=== PATIENT | female | born 1970 | race Caucasian/White ===

== ENCOUNTER 2022-10-13 12:11 | Emergency (ER) | payer OTHER, SELFPAY ==
[2022-10-13 12:40] VITALS: BP 112/77; PULSE 70; RESP 18; TEMP 37.4; O2SAT 98; BMI 25.8
--- NOTE | 2022-10-13 12:45 | XR_ITS ---
The [address] [address] Patient Name: MAGALYS BALES MRN: [id number] date: 1970 Sex: F Assigned Patient Location: ED.MAIN Current Patient Location: ER Accession/Order Number: [id number] Exam Date: 10/13/2022 13:10 Report Date: 10/13/2022 13:56 At the request of: ZANDER DOMÍNGUEZ Procedure: XR ankle RT min 3V PROCEDURE: XR ankle RT min 3V, XR foot RT min 3V HISTORY: fall ; acute right foot and ankle pain after falling COMPARISON: None. FINDINGS: BONES:Suspect cortical avulsion from the anterior lateral margin of the calcaneus. Thin ossifications dorsal to the distal dorsal talus and adjacent dorsal surface of the navicular bone suspicious for cortical avulsion. SOFT TISSUES:Soft tissue swelling of the anterior lateral foot. EFFUSION:None visible. OTHER: Negative. IMPRESSION: 1. Suspect acute avulsion fracture from the anterior lateral calcaneus and dorsal surface of the talus and navicular bone. Electronically authenticated by: IBRAHIMA CLAUDIO Date: 10/13/2022 13:56
--- NOTE | 2022-10-13 12:45 | XR_ITS ---
The [address] [address] Patient Name: MAGALYS BALES MRN: [id number] date: 1970 Sex: F Assigned Patient Location: ED.MAIN Current Patient Location: ER Accession/Order Number: [id number] Exam Date: 10/13/2022 13:10 Report Date: 10/13/2022 13:56 At the request of: ZANDER DOMÍNGUEZ Procedure: XR foot RT min 3V PROCEDURE: XR ankle RT min 3V, XR foot RT min 3V HISTORY: fall ; acute right foot and ankle pain after falling COMPARISON: None. FINDINGS: BONES:Suspect cortical avulsion from the anterior lateral margin of the calcaneus. Thin ossifications dorsal to the distal dorsal talus and adjacent dorsal surface of the navicular bone suspicious for cortical avulsion. SOFT TISSUES:Soft tissue swelling of the anterior lateral foot. EFFUSION:None visible. OTHER: Negative. IMPRESSION: 1. Suspect acute avulsion fracture from the anterior lateral calcaneus and dorsal surface of the talus and navicular bone. Electronically authenticated by: IBRAHIMA CLAUDIO Date: 10/13/2022 13:56
--- NOTE | 2022-10-13 14:29 | ED.LOWEXI1 ---
HPI - Extremity Injury (Lower) General Chief Complaint: Extremity Injury, Lower Stated Complaint: LOWER RIGHT FOOT INJURY/ FALL Time Seen by Provider: 10/13/22 14:29 Source: patient and family Mode of arrival: Wheelchair Limitations: no limitations History of Present Illness HPI Narrative: Patient presents to the emergency department complaining of right ankle pain. Patient states she rolled it And heard a pop. She developed swelling and bruising. She is unable to bear weight. She has not taking anything for pain at home. She denies any other injury. She denies any paresthesias. She denies any weakness.States mechanical fall. Patient Not have any other complaint. She denies pain at the base of the 5th. Related Data Previous Rx's Medication Instructions Recorded ibuprofen 800 mg tablet 800 mg PO TID PRN pain #20 tabs 10/13/22 Allergies Allergy/AdvReac Type Severity Reaction Status Date / Time duloxetine [From Cymbalta] Allergy Intermediate Verified 10/13/22 12:44 fluoxetine [From Prozac] Allergy Intermediate Verified 10/13/22 12:44 midazolam [From Versed] Allergy Intermediate Verified 10/13/22 12:44 penicillin Allergy Intermediate Uncoded 10/13/22 12:44 Review of Systems ROS Status of ROS 10 or more systems reviewed and unremarkable except as noted in history and below Exam Narrative Exam Narrative: Nurses notes and vital signs reviewed and patient is not hypoxic. General: Nontoxic, Well-appearing and in no apparent distress. Skin: Warm, dry, no pallor noted. No Rash Head: Normocephalic, atraumatic. Neck: Supple, non-tender. Eye: Pupils are equal, round and EOMI. No scleral icterus. Ears, Nose, Mouth, and Throat: TM clear, no posterior oropharynx erythema or nasal mucosal hypertrophy, uvula is mid-line Oral mucosa is moist Cardiovascular: Regular Rate and Rhythm without murmur, gallop or rub. Respiratory: No accessory muscle use or respiratory distress. Lungs are clear to auscultation, no wheezing, rales or rhonchi Chest Wall: no tenderness Back: No midline thoracic or lumbar vertebral tenderness. No CVA tenderness Musculoskeletal: Ecchymosis and edema noted to the lateral malleolus and midfoot. Tenderness to palpation. No pain at the base of the 5th. DP +2, tuberculosis +2, capillary refill is brisk. Range of motion is limited by pain.no calf or popliteal tenderness, no lower extremity edema/swelling GI: Abdomen is soft, non-distended. Normal bowel sounds. No masses appreciated. No tenderness to palpation. No rebound, guarding, or rigidity noted. Neurological: A&O x4. No cranial nerve dysfunction observed. No truncal ataxia. Moves all extremities. Sensation intact. Psychiatric: Cooperative and interactive. Constitutional Vital Signs - 24 hr 10/13/22 12:40 Temperature 99.3 F Pulse Rate [Monitor] 70 Respiratory Rate 18 Blood Pressure [Right Arm] 112/77 Pulse Oximetry 98 Oxygen Delivery Method Room Air Course Vital Signs Vital signs: Vital Signs Temperature 99.3 F 10/13/22 12:40 Pulse Rate 70 10/13/22 12:40 Respiratory Rate 18 10/13/22 12:40 Blood Pressure 112/77 10/13/22 12:40 Pulse Oximetry 98 10/13/22 12:40 Oxygen Delivery Method Room Air 10/13/22 12:40 Temperature 99.3 F 10/13/22 12:40 Pulse Rate 70 10/13/22 12:40 Respiratory Rate 18 10/13/22 12:40 Blood Pressure 112/77 10/13/22 12:40 Pulse Oximetry 98 10/13/22 12:40 Oxygen Delivery Method Room Air 10/13/22 12:40 MDM - Extremity Injury (Lower) MDM Narrative Medical decision making narrative: A result discussed with patient. Patient is placed in a lower leg splint. Splint Application: The patient was placed in a short leg splint with orthoglass splint material, 4 inch. The patient had 2 rolls of the web roll applied to the affected site. Patient then had the splint material placed with felt side against web roll and skin. The patient had the splint secured in place with severo bandage. The patient was neurovascularly intact post application of the splint. Placed on crutches. Patient given prescription for analgesics, advised rice therapy, follow-up with Dr. paredes. Discharge Plan Discharge Chief Complaint: Extremity Injury, Lower Clinical Impression: Avulsion fracture of talus, Calcaneus fracture, Closed navicular fracture of right ankle Patient Disposition: Home, Self-Care Time of Disposition Decision: 14:38 Condition: Good Mode of Transportation: Private Vehicle Prescriptions / Home Meds: New ibuprofen 800 mg tablet 800 mg PO TID PRN (Reason: pain) Qty: 20 0RF Instructions: Ankle Fracture (ED) Stand Alone Forms: Portal Instructions Referrals: Julio Paredes MD [Physician] - 1 week KENTON WISEMAN [Primary Care Provider] - 1 week Discharge Date/Time: 10/13/22 15:21
[2022-10-13] MEDS: IBUPROFEN 400 MG TABLET 800 MG PO (14:59)
== END 2022-10-13 15:21 | disposition home or self-care (01) ==
PROVIDERS: Emergency Provider Emergency Medicine; PCP Family Medicine
DX: S92.101A Unspecified fracture of right talus, initial encounter for closed fracture (principal); S92.001A Unspecified fracture of right calcaneus, initial encounter for closed fracture; S92.251A Displaced fracture of navicular [scaphoid] of right foot, initial encounter for closed fracture; X50.9XXA Other and unspecified overexertion or strenuous movements or postures, initial encounter
CPT/HCPCS: 29515; 73610; 73630; 99283

== ENCOUNTER 2025-01-08 11:47 | Outpatient (OUT) | payer OTHER, SELFPAY ==
--- OUTSIDE RECORDS SUMMARY | 2014-05-27 13:45 | XMS_ITS | Continuity of Care Document ---
Author Organization [facility] Address [address] [place] [address] Phone Care Team Providers Care Catering Driver Name Role Phone Henrry Sutton Unavailable Unavailable Procedures Procedure Date IMMUNIZATION ADMIN TDAP VACCINE >7 IM IMMUNIZATION ADMIN TDAP VACCINE >7 IM OFFICE/OUTPATIENT VISIT, EST HEP B VACCINE, ADULT, IM OFFICE/OUTPATIENT VISIT, EST HEP B VACCINE, ADULT, IM Advance Directives Directive Yes / No Effective Date File Name No Information Encounters Encounter Description Practice Location Reason(s) For Visit Diagnoses Date Provider Providers Copied on Encounter [facility], [address] [place] [address], [place], [id number], [place] tel:[phone] [facility] No Information Cornell Mcguire. [address], [place], [id number], [place]. tel:[phone] OFFICE/OUTPATI ENT VISIT, [facility], [address], [place], [id number], [place] tel:[phone] [facility] No Information Cornell Mcguire. [address], [place], [id number], [place]. tel:[phone] OFFICE/OUTPATI ENT VISIT, [facility], [address], [place], [id number], [place] tel:[phone] [facility] No Information Cornell GANN Henrry. [address] [place] [address], [place], [place], [id number], [place]. tel:[phone] Family History Family Member Type Diagnosis Age At Onset No Information Immunizations Vaccine Date Status Comments Flu (split) (3 yrs or older) refused Source: New Immunization Record Tdap (>7 yrs) administered Note: VIS give n ; Source: New Immunization Record Payers Payer name Insurance type Covered green party ID Authoriza tion(s) [place] [employer] [id number] [place] [employer] [id number] [place] [employer] [id number] Social History Type Description Quantity Date Captured Comments Sex Female Smoking Status No Information Sexual Orientation Straight or heterosexual Chief Complaint And Reason For Visit No Information Reason For Referral Reason For Referral No Information History Of Present Illness Encounter Date Complaint History Of Prese nt Illness No Information Functional Status Date Functional Assessmen t No Information Instructions Date Instruction Additional Infor mation No Information Assessments Type Assessment Date No Information Patient Care Teams Name Effective Dates (start - stop) Status Members No Information
--- OUTSIDE RECORDS SUMMARY | 2023-11-01 05:45 | XMS_ITS ---
Author Organization [facility] Address [address] [place] [address] Care Team Providers Care Communications Associate Name Role Phone Colleen Justice Primary Care Provider [facility] JUSTICE Unavailable [phone] Allergies Allergen (clinical drug ingredient) Drug/Non Drug Allergy documented on EMR Reaction Allergy Type Onset Date Status duloxetine Cymbalta tachycardia Drug Allergy Acti ve sumatriptan Imitrex sleepy Drug Allergy Activ e fluoxetine PROzac depression Drug Allergy Activ e Shellfish (FN) Shellfish-derived Products lips numb and tingling Drug Allergy Active Penicillin rash Drug Allergy Active REASON FOR VISIT rash right wrist. Spreading all over body. + itch. Has had for about 1 1/2 weeks Medications Medication SIG (Take, Route, Fr equency, Duration) Notes Start Date End Date Status Meloxicam 7.5 MG 1 tablet Orally Once a day prn for 30 days PRN Not-Taking Ajovy 225 MG/1.5ML 1.5 mL Subcutaneous Active predniSONE 20 MG 2 tablet Orally Once a day for 5 days 11/01/2023 Active Ubrelvy 100 MG 1 tablet may take se cond dose at least 2 hours after first dose as needed Orally Once a day for 30 days 05/10/2023 Active Social History Tobacco Use: Social History Observation Description Date Details (start date - stop date) Former Smoker 05/08/1981 - 05/08/2006 Tobacco Use/Smoking Question Answer Notes Patient is a former smoker When did you start smoking? 05/08/1981 When did you stop smoking? 05/08/2006 AUDIT-C (Standard) Question Answer Notes Did you have a drink contain ing alcohol in the past year? Yes How often did you have six o r more drinks on one occasion in the past year? Never (0 point) How many drinks did you have on a typical day when you were drinking in the past year? 1 or 2 drinks (0 point) How often did you have a dri nk containing alcohol in the past year? 2 to 3 times a week (3 points) Points 3 Interpretation Positive Vital Signs Blood pressure systolic 124 mm Hg 11/01/19 24 Blood pressure diastolic 70 mm Hg 024 Height 65 in 11/01/2023 Weight 174.6 lbs 11/01/2023 BMI 29.05 kg/m2 11/01/2023 Encounters Encounter Location Date Provider Diagnosis [address] [address] 11/01/2023 [facility]LE[facility] JUSTICE Poison amie dermatiti s L23.7 Assessments Encounter Date Diagnosis (ICD Code) Assessment Notes Treatment Notes Treatment Clinical Notes Section Notes 11/01/2023 Poison amie dermatitis (ICD-10 - L23.7) fu if needed benadryl prn Plan Of Treatment Medication Medication Name Sig Start Date Stop Date Notes predniSONE 20 MG 2 tablet Orally Once a day for 5 days Treatment Notes Assessment Notes Poison amie dermatitis fu if needed benadryl prn Next Appt Details Follow Up: prn, Reason: Progress Notes * Jeanne BALES JDOB: [birth year] (53 yo F)Acc No.[id number]:11/01/2023 Progress Note Patient: Jeanne HARRIS Provider: Elen Justice CNP :1970 A ge:53 Y S ex:Female Date:11/01/2023 Address:[address] [place], [place] [id number] Check In:09:42 AM ESTCheck O ut:10:01 AM EST Subjective: * Chief Complaints: * r steffany right wrist. Spreading all over body. + itch. Has had for about 1 1/2 weeks * HPI: G eneral: poison amie spreading cleaning out gutters topicals not helping. * ROS: G eneral/Constitutional: Fever d enies. H eadache d enies. W eight loss?denies. O phthalmologic: Discharge d enies. E ye Pain d enies. I tching and redness d enies. E NT: Nasal discharge d enies. N keshav congestion d enies.?Sore throat d enies. C ardiovascular: Chest tightness/ heavy pressure d enies. R apid heart rate d enies. S welling of extremities d enies. C hest pain d enies. ? R espiratory: Productive cough d enies. C hest pain d enies. C ough d enies. S hortness of breath d enies. W heezing d enies. ? G astrointestinal: Abdominal pain d enies. C onstipation d enies. D ecreased appetite d enies. D iarrhea d enies. N ausea d enies. V omiting?denies. G enitourinary: Urinary incontinence d enies. P ainful urination d enies. M usculoskeletal: Back pain d enies. N annette pain d enies. M uscle aches d enies. S kin: Rash e xposed poison amie started rash on right wrist, now spread all extremities. S kin lesion(s) d enies. * Active Problem List S92.251D Displaced fracture o f navicular [scaphoid] of right foot, subsequent encounter for fracture with routine healing Modified On:12/08/2022U Status:confirmed S92.151D Displaced avulsion f racture (chip fracture) of right talus, subsequent encounter for fracture with routine healing Modified On:12/08/2022U Status:confirmed S92.031D Displaced avulsion f racture of tuberosity of right calcaneus, subsequent encounter for fracture with routine healing Modified On:12/08/2022U Status:confirmed M19.90 Unspecified osteoart hritis, unspecified site Modified On:12/27/2022 Status:confirmed G43.909 Migraine, unspecifie d, not intractable, without status migrainosus Modified On:01/04/2024W/U Status:confirmed * Medical History: * Surgical History: b unions 2005varicose veins 2005HYSTERECTOMY TOTAL * Hospitalization/Major Diagno stic Procedure: s ee above * Family History: F ather: , Bone Cancer. M other: alive, diagnosed with Hypertension. B rother(s): alive. S ister(s): alive, Rheumatoid Arthritis, diagnosed with Hypertension. S on(s): alive. 1 brother(s) , 2 sister(s) . 1 son(s) . . * Social History: T obacco Use: T obacco Use/Smoking P atient is a f ormer smoker W hen did you start smoking? 0 05/08/1981 W hen did you stop smoking? 0 05/08/2006 D rug/Alcohol: A ANTONIO-C (Standard) D id you have a drink containing alcohol in the past year? Y es H ow often did you have six or more drinks on one occasion in the past year? N ever (0 point) H ow many drinks did you have on a typical day when you were drinking in the past year? 1 or 2 drinks (0 point) H ow often did you have a drink containing alcohol in the past year? 2 to 3 times a week (3 points) P oints 3 I nterpretation P ositive * Medications: T akingAjovy(Fremanezumab-vfrm) 225 MG/1.5ML Solution Prefilled Syringe 1.5 mL Subcutaneous Ubrelvy(Ubrogepant) 100 MG Tablet 1 tablet may take second dose at least 2 hours after first dose as needed Orally Once a day Taking Ajovy(Fremanezumab- vfrm) 225 MG/1.5ML Solution Prefilled Syringe 1.5 mL Subcutaneous Taking Ubrelvy(Ubrogepant) 100 MG Tablet 1 tablet may take second dose at least 2 hours after first dose as needed Orally Once a day Not-Taking/PRNMeloxicam 7.5 MG Tablet 1 tablet Orally Once a day prn , Notes to Pharmacist: PRNMedication List reviewed and reconciled with the patientNot-Taking/PRN Meloxicam 7.5 MG Tablet 1 tablet Orally Once a day prn , Notes to Pharmacist: PRNMedication List reviewed and reconciled with the patient * Allergies: P enicillin: rash - AllergyPROzac: depression - AllergyCymbalta: tachycardia - AllergyShellfish-derived Products: lips numb and tingling - AllergyImitrex: sleepyno[Allergies Verified] Objective: * Vitals: W t:174.6lbs, Ht: 65 in, BP:124/70mm Hg, BMI:29.05Index, Ht-cm: 165.1 cm, Wt-k.2 kg. * Examination: G eneral Examinations: GENERAL APPEARANCE: a lert and oriented, i n no acute distress. EYES: c onjunctiva normal, sclera non-icteric. NOSE: n ormal external appearance. LUNGS: c lear to auscultation bilaterally. CARDIO: r egular rate and rhythm, S1, S2 normal. MUSCULOSKELETAL G ait and station normal. SKIN: s cattered scabs to right wrist scattered papules to left upper arm and lower legs.? Assessment: * Assessment: 1. P asha amie dermatitis - L23.7 (Primary) Plan: * Treatment: * Procedure Codes: * Preventive Medicine: Screenings/Counseling: B NM ACTION PLAN Above Normal BMI Follow-up D ietary management education, guidance, and counseling See treatment section of progress note for complete details of management plan. * Follow Up: p rn * * Sign off status: Completed Visit Status: C HK (Check Out) true * Provider: Elen Justice CNP Date: 0 11/01/2023 Generated for Tomas navarrete/Donna/eTajayitting on: 0 01/08/2025 11:50 AM EDT History and Physical Notes * Examination Category Sub-Category Detail Notes Category Not es General Examinations GENERAL APPEARANCE: alert a nd oriented, in no acute distress EYES: conjunctiva normal, sclera non-icteric EARS: NOSE: normal external appe arance THROAT: CARDIO: regular rate and rhy thm, S1, S2 normal LUNGS: clear to auscultatio n bilaterally ABDOMEN: SKIN: scattered scabs to r ight wrist scattered papules to left upper arm and lower legs BACK: MUSCULOSKELETAL: Gait and station nor mal LYMPH NODES:
--- OUTSIDE RECORDS SUMMARY | 2025-01-08 11:50 | XMS_ITS | Clinical Summary ---
Author Organization [facility] Address [address] [place] [address] Care Team Providers Care Buggy Man Name Role Phone Colleen Justice MD Unavailable [phone] Kiel Prasad MD Primary Care Provider [phone] Raffaele Khan DO Unavailable [phone] Allergies Active Allergy Reactions Criticality Noted Date Comments Duloxetine Hcl Palpitations,Unknown Low 10/13/2023 Fluoxetine Unknown 10/13/2023 Other Reaction(s): Lethargy Sedation Penicillin G Rash,Unknown Low 10/13/2023 Sumatriptan 10/13/2023 Other Reaction(s): Lethargy Sedation Medications meloxicam (Mobic) 7.5 MG tablet Take 7.5 mg by mouth Daily as needed 4 Active fremanezumab (Ajovy) 225 MG/1.5ML auto-injectorInd ications:Migrain e without status migrainosus, not intractable, unspecified migraine type Inject 1 pen (225 mg) under the skin every 30 (thirty) days 1.5 mL 11 5 07/18/19 26 Active Ubrogepant (Ubrelvy) 100 MG tabletIndication s:Migraine without status migrainosus, not intractable, unspecified migraine type Take 1 tablet by mouth as needed at the onset of migraine. May repeat dose (1 tablet) once after 2 hours if migraine persists. Take no more than 2 doses in 24 hours. 8 tablet 5 5 Active Active Problems Problem Noted Date Diagnosed Date Migraine 10/13/2023 Arthralgia of metacarpophala ngeal joint, unspecified laterality 10/13/2023 Family History Medical History Relation Name Comments Cancer Brother Hypertension Brother Irritable bowel syndrome Brother Rheum arthritis Brother Cancer Father Stroke Father Hypertension Mother Relation Name Status Comments Brother Father Mother Social History Tobacco Use Types Packs/Day Years Used Date Smoking Tobacco: Never Smokeless Tobacco: Never Tobacco Cessation:Counseling Given: Not Answered Alcohol Use Standard Drinks/Week Comments Not Currently 1 (1 standard drink = 0.6 oz pur e alcohol) Comments Unknown Sex and Gender Information Value Date Recorded Sex Assigned at Not on file Legal Sex Female 8:35 PM EDT Gender Identity Not on file Sexual Orientation Not on file Last Filed Vital Signs Vital Sign Reading Time Taken Comments Blood Pressure 126/84 07/22/2024 4:25 PM EDT Pulse 84 07/22/2024 4:25 PM EDT Temperature - - Respiratory Rate - - Oxygen Saturation 99% 07/22/2024 4:25 PM EDT Inhaled Oxygen Concentration - - Weight 76.2 kg (168 lb) 07/22/2024 4:25 PM EDT Height 167.6 cm (5' 6 ) 10/16/2023 3:04 PM EDT Body Mass Index 27.12 10/16/2023 3:04 PM EDT Plan of Treatment Health Maintenance Due Date Last Done Comments CT Colonography 1969 Colonoscopy 1969 Colorectal Cancer Screening 1969 FIT-DNA 1969 FIT 1969 FOBT 1969 Sigmoidoscopy 1969 Pap Smear 1990 Cervical Cancer Screening 1999 HPV/Cotest 1999 Mammogram 2009 Influenza Vaccine (#1) 2025 01/17/2024, 2021 Insurance [facility] [place] [address] Care Teams Buggy Man Relationship Specialty Start Date End Date Kiel Prasad MD [facility] [place], [place] [id number] PCP - General Family Medicine 07/26/23 Colleen Justice MD [address] [place] [address] Referring Physician Family Medicine 07/26/23 Raffaele Khan DO [address] [address] Referring Physician Neurology 07/26/23
--- OUTSIDE RECORDS SUMMARY | 2025-01-08 11:55 | XMS_ITS | Clinical Summary ---
Author Organization [facility] Address [address] [place] [address], [address] [place] [address] Care Team Providers Care Master Deputy Sheriff [employer] Security Name Role Phone Indio Vargas DO Primary Care Provider [phone] Social History Tobacco Use Types Packs/Day Years Used Date Smoking Tobacco: Never Assessed Comments Unknown Sex and Gender Information Value Date Recorded Sex Assigned at Not on file Legal Sex Female 6:44 PM EST Gender Identity Not on file Sexual Orientation Not on file Plan of Treatment Not on file Care Teams Master Deputy Sheriff Court Security Relationship Specialty Start Date End Date Indio Vargas DO [address] [place] [address] PCP - General 08/05/13
--- OUTSIDE RECORDS SUMMARY | 2025-01-08 11:58 | XMS_ITS | Patient Health Record ---
Author Organization [facility] in [place] Address [address] [place] [address] Care Team Providers Care Scrap Preparation Supervisor Name Role Phone Colleen Justice Primary Care Provider [phone] Allergies Allergen (clinical drug ingredient) Drug/Non Drug Allergy documented on EMR Reaction Allergy Type Onset Date Status Information temporarily unavailable Cymbalta tachycardia Drug Allergy Active Information temporarily unavailable Imitrex sleepy Drug Allergy Active Information temporarily unavailable PROzac depression Drug Allergy Active Information temporarily unavailable Shellfish-derived Products lips numb and tingling Drug Allergy Active Information temporarily unavailable Penicillin rash Drug Allergy Active Reason For Referral No Information Medications Medication SIG (Take, Route, Fr equency, Duration) Notes Start Date End Date Status Meloxicam 7.5 MG 1 tablet Orally Once a day prn for 30 days Active Ajovy 225 MG/1.5ML 1.5 mL Subcutaneous Active Ubrelvy 50 MG 1 tablet as needed, may take second dose at least 2 hours after first dose up to 4 tablets per day as needed Orally Once a day Active valACYclovir HCl 1 GM 1 tablet Orally TID for 7 days 09/17/2024 Active Social History Tobacco Use: Social History Observation Description Date Details (start date - stop date) Former Smoker 05/08/1981 - 05/08/2006 Tobacco Use/Smoking Question Answer Notes Patient is a former smoker When did you start smoking? 05/08/1981 When did you stop smoking? 05/08/2006 Alcohol Screen (Audit-C) Question Answer Notes Did you have a drink contain ing alcohol in the past year? Yes How many drinks did you have on a typical day when you were drinking in the past year? 1 or 2 drinks (0 point) How often did you have a dri nk containing alcohol in the past year? Weekly (3 points) Points 3 Interpretation Positive AUDIT-C (Standard) Question Answer Notes Did you have a drink containing alcohol in the p ast year? No Points 0 Interpretation Negative Problems Problem Type SNOMED Code ICD Code Onset Dates Problem Status W/U Status Risk Notes Problem Information temporarily unavailable Overweight (E66.3) Active confirmed Problem 92587907 Migraine, unspecified, not intractable, without status migrainosus (G43.909) Active confirmed Problem 7202868 Unspecified osteoarthritis, unspecified site (M19.90) Active confirmed Problem 785297055 Other hammer toe(s) (acquired), right foot (M20.41) Active confirmed Problem 67457897 Other hammer toe(s) (acquired), left foot (M20.42) Active confirmed Problem 446088273 Displaced avulsion fracture of tuberosity of right calcaneus, subsequent encounter for fracture with routine healing (S92.031D) Active confirmed Problem 36912794 Displaced avulsion fracture (chip fracture) of right talus, subsequent encounter for fracture with routine healing (S92.151D) Active confirmed Problem 82042829 Displaced fracture of navicular [scaphoid] of right foot, subsequent encounter for fracture with routine healing (S92.251D) Active confirmed Vital Signs Blood pressure diastolic 64 mm Hg 09/17/2024 Height 65 in 09/17/2024 Blood pressure systolic 122 mm Hg 09/17/2024 Weight 158 lbs 09/17/2024 BMI 26.29 kg/m2 09/17/2024 Encounters Encounter Location Date Provider Diagnosis [facility] [address] [place] [address] 01/03/2025 Colleen Reshma Right arm pain M79.601 [facility] [address] [place] [address] 09/17/2024 Colleen Reshma Rash and nonspecific skin eruption R21 and Overweight E66.3 Assessments Encounter Date Diagnosis (ICD Code) Assessment Notes Treatment Notes Treatment Clinical Notes Section Notes 09/17/2024 Rash and nonspecific skin eruption (ICD-10 - R21) trial of antiviral, possible shingles 09/17/2024 Overweight (ICD-10 - E66.3) discussed diet handouts given counting calories int fasting 01/03/2025 Right arm pain (ICD-10 - M79.601) Plan Of Treatment Pending Test Test Name Order Date XR Humerus Right 01/03/2025 Insurance Providers Payer Name Payer Address Payer Phone Subscriber Number Group Number Insured Name Patient Relationship to Insured Coverage Start Date Coverage End Date [facility] [address] [place] [phone] [id number] Jeanne Caraballo Self - patient is the insured Medical (General) History Medical History History ICD Code Closed avulsion fracture of navicular filemon ne of right foot, initial encounter S92.251A Closed avulsion fracture of right talus, initial encounter S92.151A Closed displaced avulsion fr acture of tuberosity of right calcaneus, initial encounter S92.031A Surgical History Surgery Date(Month/Year) HYSTERECTOMY TOTAL varicose veins 2004 bunions 2005 Hospitalization History Reason Date(Month/Year) see above
--- NOTE | 2025-01-08 12:04 | XR_ITS ---
The [address] [address] Patient Name: MAGALYS BALES MRN: [id number] date: 1970 Sex: F Assigned Patient Location: RAD Current Patient Location: [facility] Accession/Order Number: [id number] Exam Date: 01/08/2025 12:10 Report Date: 01/08/2025 13:19 At the request of: TEENA HURTADO Procedure: XR humerus RT RIGHT HUMERUS - 2 views CLINICAL HISTORY: attention area of foreign body COMPARISON: None FINDINGS: No radiopaque foreign body or acute bony process. XR/XR humerus RT IMPRESSION: NO RADIOPAQUE FOREIGN BODY OR ACUTE BONY PROCESS. Impression dictated by: Ted Mondragon Jr., FranchescaOFacundo 01/08/2025 1:19 PM Dictation Location: [place] [address] Electronically authenticated by: [id number] Y Date: 01/08/2025 13:19
== END 2025-01-08 11:48 | disposition home or self-care (01) ==
LOC: RAD 11:49
PROVIDERS: PCP Nurse Practitioner Family; Visit Provider Nurse Practitioner Family
DX: M79.601 Pain in right arm (principal)
CPT/HCPCS: 73060